=== PATIENT | female | born 1970 | race African-American/Black ===

== ENCOUNTER 2017-12-24 20:14 | Inpatient (IN) | payer MEDICAID, OTHER ==
[~2017-12-24] VITALS: Ht 160 cm; Wt 87.5 kg
[2017-12-24] MEDS ORDERED: SODIUM CHLORIDE 0.9% 1,000 ML IV ONE (20:38)
[2017-12-24 21:20] LABS: BASOPHILS % 0.5 % (0.0-2.0); HEMATOCRIT. 31.4 % (36.0-48.0); HEMOGLOBIN. 10.5 g/dL (12.0-16.0); LYMPHOCYTES % 24.6 % (20.0-50.0); MEAN CORPUSCULAR HEMOGLOBIN 29.1 pg (28.0-32.0); MEAN CORPUSCULAR VOLUME 86.7 fL (81.0-99.0); MEAN PLATELET VOLUME 8.2 fl (7.4-10.4); MONOCYTES % 11.1 % (2.0-8.0); NEUTROPHILS % 62.8 % (40.0-76.0); PLATELET 319 x1000/uL (130-400); RED BLOOD CELL COUNT 3.62 mill/uL (4.2-5.4); RED CELL DISTRIBUTION WIDTH 13.7 % (11.6-14.6)
[2017-12-24 21:22] LABS: CHLORIDE 107 mEq/L (98-107)
[2017-12-24 21:23] LABS: INR 1.1; PROTHROMBIN TIME 11.2 sec (9.4-11.6)
[2017-12-24] MEDS ORDERED: POTASSIUM CHLORIDE 20MEQ TABLET SR PO NR (21:30)
[2017-12-24] MEDS ORDERED: SODIUM CHLORIDE 0.9% 1,000 ML IV NR (22:02)
[2017-12-24] MEDS ORDERED: IBUPROFEN 600MG TABLET PO ONE (22:45)
[2017-12-25] MEDS ORDERED: EPINEPHRINE 1:1000 1 MG/ML AMP SUBCUT ONE (00:15)
[2017-12-25] MEDS ORDERED: DIPHENHYDRAMINE 50MG/ML VIAL IV ONE (00:15)
[2017-12-25] MEDS ORDERED: FAMOTIDINE 20MG/2ML VIAL IV ONE (00:15)
[2017-12-25] MEDS ORDERED: METHYLPREDNISOLONE SOD SUCC 125 MG/2 ML VIAL IV ONE (02:00)
[2017-12-25 03:04] VITALS: BP 113/72
[2017-12-25 04:00] VITALS: BP 113/72
[2017-12-25] MEDS ORDERED: HYDR200T80 MT (06:26)
[2017-12-25] MEDS ORDERED: HYDR25TA MT (06:26)
[2017-12-25] MEDS ORDERED: BENA20TA3 PO (06:27)
[2017-12-25] MEDS ORDERED: LANS30CA52 PO (06:27)
[2017-12-25 07:43] VITALS: BP 104/62
[2017-12-25] MEDS ORDERED: CLONIDINE 0.1MG TABLET PO PRN (08:00)
[2017-12-25] MEDS ORDERED: HYDROCODONE/ACETAMINOPHEN 5/325MG TABLET PO PRN (08:00)
[2017-12-25] MEDS ORDERED: PANTOPRAZOLE 40MG DR TABLET PO SCH (08:00)
[2017-12-25] MEDS ORDERED: ACETAMINOPHEN 325MG TABLET PO PRN (08:00)
[2017-12-25] MEDS ORDERED: HYDROXYCHLOROQUINE SULFATE 200MG TABLET PO SCH (09:00)
[2017-12-25] MEDS ORDERED: LANSOPRAZOLE 30MG DR CAPSULE PO SCH (09:00)
[2017-12-25] MEDS ORDERED: DIPHENHYDRAMINE 50MG/ML VIAL IV PRN (09:45)
[2017-12-25 10:52] LABS: CREATINE KINASE MB FRACTION 1.1 ng/mL (0.5-3.6)
[2017-12-25 11:58] VITALS: BP 115/74
[2017-12-25 15:22] VITALS: BP 115/74
[2017-12-25 15:46] VITALS: BP 124/78
== END 2017-12-25 16:07 | disposition home or self-care (01) | DRG 48 ==
LOC: EDBD 20:52 → ER 20:52 → 8WST 12-25 00:44 → ENRESERV 12-25 01:42
PROVIDERS: ADMIT Internal Medicine; ATTEND Internal Medicine
DX: G90.8 Other disorders of autonomic nervous system (principal); E44.1 Mild protein-calorie malnutrition; M32.9 Systemic lupus erythematosus, unspecified; D64.9 Anemia, unspecified; I10 Essential (primary) hypertension; E66.9 Obesity, unspecified; E87.6 Hypokalemia; T78.3XXA Angioneurotic edema, initial encounter; Z79.899 Other long term (current) drug therapy; Z71.3 Dietary counseling and surveillance; Z68.34 Body mass index [BMI] 34.0-34.9, adult
CPT/HCPCS: 36415; 70450; 70551; 80053; 82550; 82553; 84132; 84484; 85025; 85610; 86850; 86900; 93005; 93306; 93880; 96361; 96374; 96375; 99291; J1200; J2930; J3490; J7030; J7040

== ENCOUNTER 2021-08-13 17:39 | Emergency (ER) | payer OTHER ==
[~2021-08-13] VITALS: Ht 170.2 cm; Wt 90.0 kg
[~2021-08-13 17:39] MED LIST: HYDR200T80 MT; HYDR25TA MT; LANS30CA52 PO
[2021-08-13 17:45] VITALS: BP 110/70
[2021-08-13] MEDS ORDERED: SODIUM CHLORIDE 0.9% 1,000 ML IV ONE (18:00)
== END 2021-08-13 23:11 | disposition home or self-care (01) ==
LOC: ER 17:39
DX: R55 Syncope and collapse (principal); I10 Essential (primary) hypertension; M32.9 Systemic lupus erythematosus, unspecified; Z98.890 Other specified postprocedural states
CPT/HCPCS: 93005; 99283; J7030